=== PATIENT | male | born 1950 | race Caucasian/White ===

== ENCOUNTER 2021-10-31 14:05 | Emergency (ER) | payer MEDICARE, SELFPAY ==
[2021-10-31 14:11] VITALS: BP 210/100; PULSE 108; RESP 20; TEMP 36.4; O2SAT 100
== END 2021-10-31 15:04 | disposition left against medical advice (07) ==
LOC: ANHED 15:22
PROVIDERS: PCP Hospitalist
DX: R51.9 Headache, unspecified (principal)
CPT/HCPCS: 99199